=== PATIENT | male | born 1950 | race Asian ===

== ENCOUNTER 2017-01-01 07:44 | Day surgery (SDC) | payer MEDICARE, OTHER ==
[~2017-01-01] VITALS: Ht 154.9 cm; Wt 67.9 kg
--- NOTE | ~2017-01-01 | CATH ---
Cardiac Diagnostic Report Demographics Patient Name PITO Gender Male HAILEE Date of 1950 Age 66 year(s) Patient Number [id number] Date of Study 01/01/2017 Visit Number [id number] Room Number Corporate ID Ht 154.94 cm Wt 67.9 kg Accession Number [id number] BSA 1.67 m kg/m Referring Ayse Guzman MD Primary Physician Physician Performing Ayse Guzman MD Secondary Physician Physician Diagnostic Ayse Guzman MD Assisting Physician Physician Interventional Physician Magnet Placer Physician Findings and Conclusions Diagnostic Findings and Conclusion Severe three vessel coronary artery disease. Normal LVEDP. Diagnostic Recommendations Medical management. Procedure Description The patient was brought to the diagnostic cardiac catheterization laboratory in the fasting, non-sedated state. Informed consent was obtained in the written and verbal form after the risks and benefits were explained. The patient had no further questions and agreed to proceed. The planned puncture-incision site(s) were clipped and prepped with ChloraPrep and draped in the usual sterile manner. Conscious sedation, supplemental oxygen, and pain control medications were delivered by a registered nurse under physician guidance. Surface ECG rhythm, blood pressure measurement, and pulse oximetry were monitored throughout the procedure. Arterial access. The right femoral access site was infiltrated with lidocaine. The vessel was entered with the Seldinger technique. A 5F sheath was advanced into the vessel and used for catheter placement. Selective left coronary angiography. A JL4 catheter was advanced into the left coronary vessel ostium under Fluoroscopic guidance. Contrast was injected by hand. Images were obtained in multiple projections. Left heart catheterization. A JR4 catheter was advanced across the aortic valve to the left ventricle under fluoroscopic guidance. Resting hemodynamics were obtained. Selective right coronary angiography. Multiiple catheters were advanced into the right coronary vessel ostium under fluoroscopic guidance. Unable to cannulate the RCA. Arterial artery hemostasis was achieved. The patient was transferred to the Pre/post surgical floor via cart accompanied by a nurse. The patient left the laboratory in stable condition. Procedure Procedure Type Diagnostic procedure:Angiography:, Coronary Angios w/[facility] The procedure was explained in detail to the patient. Risks, complications and alternative treatments were reviewed. Written consent was obtained. Medications Reviewed with Patient prior to Procedure. Complications: No Complication. Angiographic Findings Dominance: Right Cardiac Arteries and Lesion Findings LMCA: Abnormal. Lesion on LMCA: Distal subsection.30% stenosis . LAD: Diffuse irregularity. Lesion on Mid LAD: Ostial.50% stenosis . Lesion on Dist LAD: 60% stenosis . LCx: Abnormal. Lesion on Mid CX: 100% stenosis . RCA: Abnormal.Proximal portion is patent, unable to cannulate for angiography Ramus: Abnormal. Lesion on Ramus: Ostial.90% stenosis . Cardiac Collaterals - collateral flow from the Dist LAD to the Dist CX. - collateral flow from the Dist LAD to the Dist RCA. Coronary Tree Procedure Data Procedure Date Date: 01/01/2017Start: 10:01 End: 10:49 Entry Locations - Percutaneous access was performed through the Right Femoral artery (Primary location). A 5 Fr sheath was inserted. Hemostasis was successfully obtained using Mechanical Compression. Procedure Medications Order and Administration + + +---------+--------+ !Time !Medication !Dosage !Route ! + + +---------+--------+ !01/01/2017 09:54 !Versed !2 mg !I.V. ! + + +---------+--------+ !01/01/2017 09:54 !Fentanyl !25 mcg !I.V. ! + + +---------+--------+ !01/01/2017 09:54 !Sodium Chloride !10 ml !I.V. ! + + +---------+--------+ !01/01/2017 09:59 !Oxygen !2 l/min !NC ! + + +---------+--------+ !01/01/2017 10:00 !Versed !1 mg !I.V. ! + + +---------+--------+ !01/01/2017 10:00 !Fentanyl !25 mcg !I.V. ! + + +---------+--------+ Devices Used - A5 FrCATH 5FR MULTIPACK CATHETERSwas used for:BilateralCoronary Angios. - A5 FrCATH 5F PRC CATHETER 100CMwas used for:RightsideCoronary Angios.Unable to cannulate the vessel. - A5 Fr5F AR MOD CATHETER 100CMwas used for:RightsideCoronary Angios.Unable to cannulate the vessel. - A5 Fr5F MPA1 CATHETER 100 CMwas used for:RightsideCoronary Angios.Unable to cannulate the vessel. - A5 FrCATH 5FR AR1 CATHETER 100CMwas used for:RightsideCoronary Angios.Unable to cannulate the vessel. - A5 FrCATH 5F PRC CATHETER 100CMwas used for:RightsideCoronary Angios.Unable to cannulate the vessel. Contrast Material - Isovue 407646 ml Fluoroscopy Time: Diagnostic: 14:00 minutes. Total: 14:00 minutes. Fluoroscopy Dose: Diagnostic: 558 mGy. Total: 558 mGy. Estimated Blood Loss: 10 ml. Medical History Allergies - No known allergies. Risk Factors The patient risk factors include:peripheral arterial disease, treated hypercholesterolemia, treated hypertension, last creatinine: 4.4 mg/dl, creatinine clearance: 15.43 ml/min and former tobacco use. Admission Data Admission Date: 01/01/2017 Admission Time: 07:44 Insurance Payors: Medicare. Clinical Evaluation Leading to Procedure Diagnosed on 12/30/2016 12:00 . - There were no CAD presentation symptoms. - There were no anginal symptoms. - The reason for the patient's mason tender restoration labor visit is pre-operative evaluation before non-cardiac surgery. Hemodynamics Condition: Rest O2 Consumption: Estimated: 191.76Heart Rate: 67 bpm Pressures (mmHg) +-----+ + !Site !Pressure ! +-----+ + !AO !112/49 (75) ! +-----+ + !LV !104/-2 ,0 ! +-----+ + !AO !102/45 (70) ! +-----+ + !LV !103/-2 ,0 ! +-----+ + Valve Gradients and Areas + +---------+---------+---------+ +---------+ + !Valve !Peak !Mean !Area !Index !Flow !Source ! + +---------+---------+---------+ +---------+ + !Aortic !2 !0 ! ! ! ! ! + +---------+---------+---------+ +---------+ + !Aortic !2 !0 ! ! ! ! ! + +---------+---------+---------+ +---------+ + Shunts Oxygen Values O2 Capacity 171.36 O2 Consumption 191.76 Discharge Data Discharge Date: 01/01/2017 Hospital Status: Outpatient Signatures
== END 2017-01-01 13:00 | disposition home or self-care (01) ==
LOC: SSS 07:44
PROC: 4A023N7 Measurement of Cardiac Sampling and Pressure, Left Heart, Percutaneous Approach (ICD-10-PCS; principal; 2017-01-01)
DX: I25.10 Atherosclerotic heart disease of native coronary artery without angina pectoris (principal); I12.0 Hypertensive chronic kidney disease with stage 5 chronic kidney disease or end stage renal disease; N18.6 End stage renal disease; E78.2 Mixed hyperlipidemia; F32.9 Major depressive disorder, single episode, unspecified; K21.9 Gastro-esophageal reflux disease without esophagitis; M10.9 Gout, unspecified; N17.9 Acute kidney failure, unspecified; Z87.891 Personal history of nicotine dependence; Z98.890 Other specified postprocedural states